=== PATIENT | male | born 1975 | race Caucasian/White ===

== ENCOUNTER 2018-04-25 20:40 | Emergency (ER) | payer SELFPAY ==
[~2018-04-25 20:40] MED LIST: AMOX-355 PO; BACDS PO; KET10 PO; LOR5 PO; MOTRIN
--- NOTE | 2018-04-25 20:51 | ER Report ---
History and Physical Time Seen By MD: 20:51 HPI/ROS CHIEF COMPLAINT: Near-syncope, tunnel vision HISTORY OF PRESENT ILLNESS: 42-year-old male presents ambulatory to the ER. He' s been having symptoms for 2 weeks. Intermittent spells of dizziness and tunnel vision. They've been occurring with exertion. The last episode occurred driving a car today. He presents to the ER for evaluation. He notes no nausea, no diaphoresis, no shortness of breath. Patient reports she is under arrest extreme amount of stress at work. REVIEW OF SYSTEMS: Respiratory: No cough, no dyspnea. Cardiovascular: No chest pain, no palpitations. Gastrointestinal: No vomiting, no abdominal pain. Musculoskeletal: No back pain. Allergies: Coded Allergies: No Known Drug Allergies (Verified , 09/22/10) Home Meds Discontinued Reported Medications Trimethoprim/Sulfamethoxazole (Bactrim Ds 160-800 Mg) 1 Ea Tab, 1 EA PO BID, # 20 0 Refills 09/22/10 Acetaminophen/Hydrocodone (Lortab 5/500) 5 Mg/500 Mg Tab, 1 TAB PO Q4-6H Y, #15 0 Refills TAKE ONE PILL FOR PAIN EVERY 4-6 HOURS NEEDED FOR PAIN. 09/22/10 Ketorolac Tromethamine (Toradol) 10 Mg Tab, 10 MG PO BID, #10 0 Refills 09/22/10 Amox Tr/Potassium Clavulanate (Augmentin Xr 1,000-62.5 Tab) 1 Tab.sr .12 H Tab.sr.12h, 1 TAB.SR PO Q12H, #10 0 Refills 09/22/10 Hx Substance Use Disorder: No Hx Alcohol Use: Yes (OCC) Constitutional Vital Sign - Last 24 Hours 04/25/18 04/25/18 04/25/18 04/25/18 20:53 21:29 21:34 21:47 Pulse 79 80 Resp 16 B/P (MAP) 157/97 123/79 (94) 133/87 (102) Pulse Ox 95 95 O2 Delivery Room Air 04/25/18 04/25/18 04/25/18 04/25/18 21:49 22:00 22:04 22:19 Pulse 79 77 80 Resp 20 10 B/P (MAP) 122/76 (91) Pulse Ox 92 92 95 04/25/18 04/25/18 04/25/18 22:30 22:34 22:42 Pulse 75 Resp 18 B/P (MAP) 115/73 (87) 116/73 (87) Pulse Ox 95 Physical Exam General Appearance: The patient is alert, has no immediate need for airway protection and no current signs of toxicity. Vital signs stable, afebrile, pulse ox normal Eyes: Pupils equal and round no injection. Respiratory: Chest is non tender, lungs are clear to auscultation. Cardiac: regular rate and rhythm Gastrointestinal: Abdomen is soft and non tender, no masses, bowel sounds normal. Musculoskeletal: Neck: Neck is supple and non tender. Extremities have full range of motion and are non tender. Skin: No rashes or lesions. DIFFERENTIAL DIAGNOSIS: After history and physical exam differential diagnosis was considered for syncope including but not limited to vasovagal syncope, arrhythmia, dehydration, anxiety, panic attack and blood loss. Medical Decision Making Data Points Result Diagram: 04/25/18212904/25/182129 Laboratory Hematology Test 04/25/18 21:30 04/25/18 21:54 Red Blood Count 5.39 M/uL (4.00-5.60) Mean Corpuscular Volume 82.7 fL (80.0-96.0) Mean Corpuscular Hemoglobin 28.8 pg (26.0-33.0) Mean Corpuscular Hemoglobin Concent 34.8 g/dL (32.0-36.0) Red Cell Distribution Width 13.7 % (11.5-14.5) Mean Platelet Volume 7.9 fL (7.2-11.1) Neutrophils (%) (Auto) 79.5 % (39.4-72.5) Lymphocytes (%) (Auto) 13.1 % (17.6-49.6) Monocytes (%) (Auto) 6.5 % (4.1-12.4) Eosinophils (%) (Auto) 0.5 % (0.4-6.7) Basophils (%) (Auto) 0.4 % (0.3-1.4) Nucleated RBC Relative Count (auto) 0.0 /100WBC Neutrophils # (Auto) 6.4 K/uL (2.0-7.4) Lymphocytes # (Auto) 1.1 K/uL (1.3-3.6) Monocytes # (Auto) 0.5 K/uL (0.3-1.0) Eosinophils # (Auto) 0.0 K/uL (0.0-0.5) Basophils # (Auto) 0.0 K/uL (0.0-0.1) Nucleated RBC Absolute Count (auto) 0.00 K/uL D-Dimer Quantitative (PE/DVT) < 0.27 ug/ml (0-0.50) Sodium Level 143 mmol/L (137-145) Potassium Level 3.7 mmol/L (3.5-5.0) Chloride Level 105 mmol/L (98-107) Carbon Dioxide Level 26 mmol/L (22-30) Blood Urea Nitrogen 21 mg/dl (9-21) Creatinine 1.20 mg/dl (0.66-1.25) Glomerular Filtration Rate Calc > 60.0 Random Glucose 112 mg/dl (75-110) Calcium Level 9.3 mg/dl (8.4-10.2) Total Bilirubin 0.3 mg/dl (0.2-1.3) Aspartate Amino Transf (AST/SGOT) 19 U/L (0-35) Alanine Aminotransferase (ALT/SGPT) 25 U/L (0-56) Alkaline Phosphatase 55 U/L (0-126) Troponin I < 0.012 ng/ml Total Protein 6.9 gm/dl (6.3-8.2) Albumin 4.0 g/dl (3.5-5.0) Urine Color Yellow Urine Clarity Clear Urine pH 6.0 pH (4.8-9.5) Urine Specific [place] 1.012 Urine Protein Negative mg/dL (NEGATIVE) Urine Glucose (UA) Negative mg/dL (NEGATIVE) Urine Ketones Negative mg/dL (NEGATIVE) Urine Blood Negative (NEGATIVE) Urine Nitrite Negative (NEGATIVE) Urine Bilirubin Negative (NEGATIVE) Urine Urobilinogen Negative mg/dL (0.2-1.9) Urine Leukocyte Esterase Negative (NEGATIVE) Urine RBC 1 /HPF (0-2/HPF) Urine WBC 1 /HPF (0-5/HPF) Urine Squamous Epithelial Cells None /LPF (</=FEW) Urine Bacteria Negative /HPF (NONE-FEW) Urine Mucus Few /HPF (NONE-FEW) Chemistry Test 04/25/18 21:30 04/25/18 21:54 White Blood Count 8.1 k/uL (4.5-11.0) Red Blood Count 5.39 M/uL (4.00-5.60) Hemoglobin 15.5 g/dL (14.0-18.0) Hematocrit 44.5 % (42.0-52.0) Mean Corpuscular Volume 82.7 fL (80.0-96.0) Mean Corpuscular Hemoglobin 28.8 pg (26.0-33.0) Mean Corpuscular Hemoglobin Concent 34.8 g/dL (32.0-36.0) Red Cell Distribution Width 13.7 % (11.5-14.5) Platelet Count 251 K/uL (150-450) Mean Platelet Volume 7.9 fL (7.2-11.1) Neutrophils (%) (Auto) 79.5 % (39.4-72.5) Lymphocytes (%) (Auto) 13.1 % (17.6-49.6) Monocytes (%) (Auto) 6.5 % (4.1-12.4) Eosinophils (%) (Auto) 0.5 % (0.4-6.7) Basophils (%) (Auto) 0.4 % (0.3-1.4) Nucleated RBC Relative Count (auto) 0.0 /100WBC Neutrophils # (Auto) 6.4 K/uL (2.0-7.4) Lymphocytes # (Auto) 1.1 K/uL (1.3-3.6) Monocytes # (Auto) 0.5 K/uL (0.3-1.0) Eosinophils # (Auto) 0.0 K/uL (0.0-0.5) Basophils # (Auto) 0.0 K/uL (0.0-0.1) Nucleated RBC Absolute Count (auto) 0.00 K/uL D-Dimer Quantitative (PE/DVT) < 0.27 ug/ml (0-0.50) Glomerular Filtration Rate Calc > 60.0 Calcium Level 9.3 mg/dl (8.4-10.2) Total Bilirubin 0.3 mg/dl (0.2-1.3) Aspartate Amino Transf (AST/SGOT) 19 U/L (0-35) Alanine Aminotransferase (ALT/SGPT) 25 U/L (0-56) Alkaline Phosphatase 55 U/L (0-126) Troponin I < 0.012 ng/ml Total Protein 6.9 gm/dl (6.3-8.2) Albumin 4.0 g/dl (3.5-5.0) Urine Color Yellow Urine Clarity Clear Urine pH 6.0 pH (4.8-9.5) Urine Specific [place] 1.012 Urine Protein Negative mg/dL (NEGATIVE) Urine Glucose (UA) Negative mg/dL (NEGATIVE) Urine Ketones Negative mg/dL (NEGATIVE) Urine Blood Negative (NEGATIVE) Urine Nitrite Negative (NEGATIVE) Urine Bilirubin Negative (NEGATIVE) Urine Urobilinogen Negative mg/dL (0.2-1.9) Urine Leukocyte Esterase Negative (NEGATIVE) Urine RBC 1 /HPF (0-2/HPF) Urine WBC 1 /HPF (0-5/HPF) Urine Squamous Epithelial Cells None /LPF (</=FEW) Urine Bacteria Negative /HPF (NONE-FEW) Urine Mucus Few /HPF (NONE-FEW) Coagulation Test 04/25/18 21:30 D-Dimer Quantitative (PE/DVT) < 0.27 ug/ml Urinalysis Test 04/25/18 21:54 Urine Color Yellow Urine Clarity Clear Urine pH 6.0 pH (4.8-9.5) Urine Specific [place] 1.012 Urine Protein Negative mg/dL (NEGATIVE) Urine Glucose (UA) Negative mg/dL (NEGATIVE) Urine Ketones Negative mg/dL (NEGATIVE) Urine Blood Negative (NEGATIVE) Urine Nitrite Negative (NEGATIVE) Urine Bilirubin Negative (NEGATIVE) Urine Urobilinogen Negative mg/dL (0.2-1.9) Urine Leukocyte Esterase Negative (NEGATIVE) Urine RBC 1 /HPF (0-2/HPF) Urine WBC 1 /HPF (0-5/HPF) Urine Squamous Epithelial Cells None /LPF (</=FEW) Urine Bacteria Negative /HPF (NONE-FEW) Urine Mucus Few /HPF (NONE-FEW) EKG/Imaging EKG Interpretation 12 lead EK Rhythm: Normal sinus rhythm with sinus arrhythmia [place]: normal QRS: Incomplete right bundle branch block pattern ST segments: normal, no evidence of ischemia or dysrhythmia ED Course/Re-evaluation Clinical Indication for ER IV: Hydration, IV Access ED Course Patient was admitted to an examination room. H&P was done. The differential diagnoses was considered. On clinical examination. Patient's vital signs are stable. His EKG is unremarkable. Diagnostic laboratory study/bloodwork are unremarkable. Results are discussed with the patient. On further review of his history. He sounds like he is having panic attack and anxiety. Patient advised to follow-up with his primary care physician for further evaluation and treatment. Decision to Disposition Date: April 25, 2018 Decision to Disposition Time: 22:33 Depart Departure Latest Vital Signs Vital Signs Date Time Temp Pulse Resp B/P (MAP) Pulse Ox O2 Delivery O2 Flow Rate FiO2 04/25/18 22:42 116/73 (87) 04/25/18 22:34 75 18 95 04/25/18 20:53 Room Air Impression: Primary Impression: Anxiety Additional Impressions: Panic attack due to exceptional stress Near syncope Condition: Improved Disposition: HOME OR SELF-CARE Referrals: LESLIE GUPTA MD New Scripts No Active Prescriptions or Reported Meds Patient Instructions: Anxiety (ED) Additional Instructions: Follow-up with primary care for further evaluation Problem Qualifiers THALIA KUHN DO April 25, 2018 20:51
[2018-04-25] MEDS ORDERED: NS(*) 0.9% 1000 ML BAG 1,000 ML IV ONE (21:38)
[2018-04-25 21:46] LABS: PLATELET COUNT, AUTOMATED 251 K/uL (150-450)
--- NOTE | 2018-04-25 22:34 | EKG ---
FACILITY: PATIENT NAME: KHANG BARAJAS : [id number] MR: [id number] V: [id number] EXAM DATE: ORDERING PHYSICIAN: THALIA KUHN TECHNOLOGIST: ANGIE Test Reason : DIZZINESS Blood Pressure : / mmHG Vent. Rate : 080 BPM Atrial Rate : 080 BPM P-R Int : 140 ms QRS Dur : 118 ms QT Int : 356 ms P-R-T Axes : 061 033 050 degrees QTc Int : 410 ms Normal sinus rhythm with sinus arrhythmia Incomplete right bundle branch block Borderline ECG No previous ECGs available Confirmed by SAMANTHA MARTINEZ ([id number] on 04/26/2018 6:30:16 AM Referred By: Confirmed By:SAMANTHA MARTINEZ
[2018-04-25 22:42] VITALS: BP 116/73
== END 2018-04-25 22:50 | disposition home or self-care (01) ==
LOC: ER 20:58
DX: F41.9 Anxiety disorder, unspecified (principal); F43.0 Acute stress reaction; R55 Syncope and collapse
CPT/HCPCS: 81001; 84484; 85025; 85379; 93005; 96360; 99284; J7030; 82040; 82247; 82310; 82374; 82435; 82565; 82947; 84075; 84132; 84155; 84295; 84450; 84460; 84520